=== PATIENT | male | born 1975 | race Caucasian/White ===

== ENCOUNTER 2017-05-03 03:50 | Inpatient (IN) | payer BC, MEDICAID ==
[~2017-05-03] VITALS: Ht 188 cm; Wt 114.3 kg
[2017-05-03] VITALS (7 sets, daily range): BP systolic 120–159; BP diastolic 64–104
[2017-05-03 04:46] LABS: BASOPHILS % 0.6 % (0.0-2.0); EOSINOPHILS % 1.5 % (0.0-5.0); HEMOGLOBIN. 17.2 g/dL (14.0-18.0); LYMPHOCYTES % 45.1 % (20.0-50.0); MEAN CORPUSCULAR HEMOGLOBIN 32.9 pg (28.0-32.0); MEAN CORPUSCULAR VOLUME 91.8 fL (80.0-94.0); MEAN PLATELET VOLUME 10.8 fl (7.4-10.4); MONOCYTES % 5.6 % (2.0-8.0); NEUTROPHILS % 47.2 % (40.0-76.0); PLATELET 161 x1000/uL (130-400); RED BLOOD CELL COUNT 5.22 mill/uL (4.7-6.1); RED CELL DISTRIBUTION WIDTH 13.1 % (11.6-14.6)
[2017-05-03 04:54] LABS: PROTHROMBIN TIME 10.1 sec (9.4-11.6)
[2017-05-03] MEDS ORDERED: SODIUM CHLORIDE 0.9% 1,000 ML IV SCH (05:04)
[2017-05-03 05:07] LABS: CHLORIDE 97 mEq/L (98-107)
[2017-05-03 05:08] LABS: CARBON DIOXIDE 26 mEq/L (21-32)
[2017-05-03 05:09] LABS: ETHANOL BLOOD < 10 mg/dL; LDL CHOLESTEROL 84 mg/dL (5-100); TROPONIN I < 0.02 ng/mL (0.00-0.04)
[2017-05-03] MEDS ORDERED: ASPIRIN 325MG TABLET PO ONE (05:15)
[2017-05-03 06:38] LABS: CLARITY URINE CLEAR (CLEAR); COLOR URINE YELLOW (YELLOW); GLUCOSE URINE 3+ (NEGATIVE); KETONES URINE TRACE (NEGATIVE); LEUKOCYTE ESTERASE URINE NEGATIVE (NEGATIVE); NITRITE URINE NEGATIVE (NEGATIVE); OCCULT BLOOD URINE NEGATIVE (NEGATIVE); PROTEIN URINE TRACE (NEGATIVE); SPECIFIC GRAVITY URINE 1.044 (1.005-1.030); UROBILINOGEN URINE 0.2 E.U./dL (0.2-1.0)
[2017-05-03 06:49] LABS: *AMPHETAMINES SCREEN URINE NEGATIVE (NEGATIVE); *BARBITURATES SCREEN URINE NEGATIVE (NEGATIVE); *BENZODIAZEPINES SCREEN URINE NEGATIVE (NEGATIVE); *COCAINE SCREEN URINE NEGATIVE (NEGATIVE); CANNABINOID URINE SCREEN NEGATIVE (NEGATIVE); METHADONE URINE SCREEN NEGATIVE (NEGATIVE); OPIATES URINE SCREEN NEGATIVE (NEGATIVE); PHENCYCLIDINE URINE SCREEN NEGATIVE (NEGATIVE)
[2017-05-03] MEDS ORDERED: MAGNESIUM/ALUMINUM HYDROXIDE/SIMETHICONE 30ML UDC PO PRN (11:45)
[2017-05-03] MEDS ORDERED: LORAZEPAM 0.5MG TABLET PO PRN (11:45)
[2017-05-03] MEDS ORDERED: ONDANSETRON HCL 4MG/2ML VIAL IV PRN (11:45)
[2017-05-03] MEDS ORDERED: ENOXAPARIN 40MG/0.4ML SYR SUBCUT SCH (11:45)
[2017-05-03] MEDS ORDERED: MORPHINE SULFATE 2 MG/ML CPJ (NOT FOR IM USE) IV PRN (11:45)
[2017-05-03] MEDS: PREDNISONE 20MG TABLET PO SCH (12:47)
[2017-05-03] MEDS: THIAMINE HCL 100MG TABLET PO SCH (12:47)
[2017-05-03] MEDS: HYDROCODONE/ACETAMINOPHEN 5/325MG TABLET PO PRN ×2 (12:52→19:47)
[2017-05-03] MEDS: ENOXAPARIN 30MG/0.3ML SYR SUBCUT SCH (19:48)
[2017-05-03] MEDS ORDERED: METFORMIN HCL 500MG SR TABLET 24HR PO NR (21:00)
[2017-05-03] MEDS ORDERED: INSULIN LISPRO 100 UNITS/ML SUBCUT NR (21:00)
[2017-05-03] MEDS: INSULIN LISPRO 100 UNITS/ML SUBCUT SCH (21:00)
[2017-05-03] MEDS ORDERED: DEXTROSE 50% WATER 50ML SYRINGE IV PRN (21:00)
[2017-05-03] MEDS ORDERED: MORPHINE SULFATE 4 MG/ML CPJ (NOT FOR IM USE) IV PRN (21:15)
[2017-05-03] MEDS: BLOOD SUGAR DIAGNOSTIC STRIP TEST SCH (21:26)
[2017-05-03 22:45] LABS: CREATINE KINASE 145 IU/L (39-308); TROPONIN I < 0.02 ng/mL (0.00-0.04)
[2017-05-04] VITALS (13 sets, daily range): BP systolic 118–150; BP diastolic 64–94
[2017-05-04] MEDS: BLOOD SUGAR DIAGNOSTIC STRIP TEST SCH ×2 (07:55→12:09)
[2017-05-04] MEDS ORDERED: METFORMIN HCL 500MG TABLET PO SCH (08:00)
[2017-05-04 08:15] LABS: CREATINE KINASE 119 IU/L (39-308); TROPONIN I < 0.02 ng/mL (0.00-0.04)
[2017-05-04] MEDS: THIAMINE HCL 100MG TABLET PO SCH (08:18)
[2017-05-04] MEDS: PREDNISONE 20MG TABLET PO SCH (08:18)
[2017-05-04] MEDS: ENOXAPARIN 30MG/0.3ML SYR SUBCUT SCH (08:20)
[2017-05-04] MEDS: INSULIN LISPRO 100 UNITS/ML SUBCUT SCH ×2 (08:24→12:09)
[2017-05-04 08:37] LABS: BASOPHILS % 0.4 % (0.0-2.0); EOSINOPHILS % 0.9 % (0.0-5.0); HEMATOCRIT. 44.3 % (42.0-52.0); HEMOGLOBIN. 15.6 g/dL (14.0-18.0); LYMPHOCYTES % 30.8 % (20.0-50.0); MEAN CORPUSCULAR HEMOGLOBIN 32.5 pg (28.0-32.0); MEAN CORPUSCULAR VOLUME 92.5 fL (80.0-94.0); MONOCYTES % 6.6 % (2.0-8.0); NEUTROPHILS % 61.3 % (40.0-76.0); PLATELET 137 x1000/uL (130-400); RED BLOOD CELL COUNT 4.78 mill/uL (4.7-6.1); RED CELL DISTRIBUTION WIDTH 13.1 % (11.6-14.6)
[2017-05-04 08:43] LABS: CHLORIDE 102 mEq/L (98-107)
[2017-05-04 08:52] LABS: CARBON DIOXIDE 27 mEq/L (21-32)
[2017-05-04] MEDS ORDERED: FAMOTIDINE 20MG TABLET PO SCH (09:00)
[2017-05-04] MEDS: ACYCLOVIR 400 MG TABLET PO SCH ×2 (10:57→14:53)
== END 2017-05-04 17:22 | disposition home or self-care (01) | DRG 74 ==
LOC: ER 03:50 → EDBEDREQ 05:13 → ENRESERV 07:52 → 5EST 11:10
PROVIDERS: ADMIT Internal Medicine Nephrology; ATTEND Internal Medicine Nephrology
DX: G51.0 Bell's palsy (principal); I10 Essential (primary) hypertension; E11.9 Type 2 diabetes mellitus without complications; Z88.0 Allergy status to penicillin; Z79.899 Other long term (current) drug therapy; Z91.19 Patient's noncompliance with other medical treatment and regimen
CPT/HCPCS: 36415; 70450; 70551; 71010; 80053; 80305; 81001; 82550; 82962; 83036; 83721; 84443; 84484; 85025; 85610; 93005; 93880; 96360; 96361; 97162; 99285; G0482; J1650; J1815; J7030; J7512